=== PATIENT | female | born 1995 | race Caucasian/White ===

== ENCOUNTER 2022-11-26 09:48 | Emergency (ER) | payer SELFPAY | END 2022-11-26 11:31 | disposition home or self-care (01) | LOC: JD.ED 09:48 | DX: H66.002 Acute suppurative otitis media without spontaneous rupture of ear drum, left ear (principal); J40 Bronchitis, not specified as acute or chronic; J32.9 Chronic sinusitis, unspecified; E66.9 Obesity, unspecified; Z68.32 Body mass index [BMI] 32.0-32.9, adult | CPT/HCPCS: 99282 ==

== ENCOUNTER 2023-04-27 06:52 | Day surgery (SDC) | payer MEDICAID ==
[2023-04-27] MEDS ORDERED: Sodium Chloride 0.9% 10 ML Syringe FLUSH PRN (07:00)
[2023-04-27] MEDS ORDERED: Lactated Ringers 1,000 ML IV SCH (07:00)
[2023-04-27] MEDS ORDERED: Doxycycline Monohydrate 100 MG Cap PO SCH (07:00)
[2023-04-27] MEDS ORDERED: Methylergonovine 0.2 MG/1 ML Amp ONE (07:15)
[2023-04-27] MEDS ORDERED: fentaNYL 100 MCG/2 ML SDV ONE ×2 (07:45→08:41)
[2023-04-27] MEDS ORDERED: Propofol 200 MG/20 ML SDV ONE ×3 (07:46→08:41)
[2023-04-27] MEDS ORDERED: Midazolam 1 MG/ML 2 ML SDV ONE (07:46)
[2023-04-27] MEDS ORDERED: Lidocaine 1% 4 ML ONE (07:47)
[2023-04-27] MEDS ORDERED: Dexmedetomidine 200 MCG/2 ML SDV ONE (08:08)
[2023-04-27] MEDS ORDERED: Ondansetron 4 MG/2 ML SDV ONE (08:26)
[2023-04-27] MEDS ORDERED: Ketorolac 30 MG/ML SDV ONE (08:55)
[2023-04-27] MEDS ORDERED: Misoprostol 200 MCG Tab PO ONE (09:07)
[2023-04-27] MEDS ORDERED: Acetaminophen/HYDROcodone 325-5 MG Tab PO ONE (10:30)
== END 2023-04-27 10:02 | disposition home or self-care (01) ==
LOC: JD.SDS 06:52
PROVIDERS: ATTEND Obstetrics & Gynecology
DX: O02.1 Missed abortion (principal); O99.511 Diseases of the respiratory system complicating pregnancy, first trimester; J30.9 Allergic rhinitis, unspecified; O98.811 Other maternal infectious and parasitic diseases complicating pregnancy, first trimester; A74.9 Chlamydial infection, unspecified; O99.211 Obesity complicating pregnancy, first trimester; E66.9 Obesity, unspecified; O99.331 Smoking (tobacco) complicating pregnancy, first trimester; F17.200 Nicotine dependence, unspecified, uncomplicated; O99.341 Other mental disorders complicating pregnancy, first trimester; F41.9 Anxiety disorder, unspecified; F32.A Depression, unspecified; Z90.89 Acquired absence of other organs; Z79.899 Other long term (current) drug therapy; Z3A.09 9 weeks gestation of pregnancy
CPT/HCPCS: 59820; 88233; A9270; J1885; J2250; J2405; J2704; J3010; J7120; J2210; J3490

== ENCOUNTER 2023-07-11 15:12 | Emergency (ER) | payer SELFPAY | END 2023-07-11 17:53 | disposition home or self-care (01) | LOC: JD.ED 15:12 | DX: O99.891 Other specified diseases and conditions complicating pregnancy (principal); R10.2 Pelvic and perineal pain; O99.211 Obesity complicating pregnancy, first trimester; Z87.891 Personal history of nicotine dependence; Z3A.01 Less than 8 weeks gestation of pregnancy | CPT/HCPCS: 36415; 76817; 76817-26; 84702; 99283; 99284 ==

== ENCOUNTER 2023-08-04 19:09 | Emergency (ER) | payer SELFPAY ==
[2023-08-04 20:01] LABS: BASOPHILS ABSOLUTE AUTO 0.1 K/mm3 (0.0-0.2); BASOPHILS PERCENT AUTO 0.5 % (0.0-1.0); EOSINOPHILS ABSOLUTE AUTO 0.3 K/mm3 (0.0-0.4); EOSINOPHILS PERCENT AUTO 2.2 % (0.0-6.0); HEMATOCRIT 34.7 % (37.0-47.0); HEMOGLOBIN 12.1 gm/dl (12.0-16.0); IMMATURE GRAN ABSOLUTE AUTO 0.04 K/mm3 (0.00-0.05); IMMATURE GRAN PERCENT AUTO 0.3 % (0.0-0.4); LYMPHOCYTES ABSOLUTE AUTO 4.4 K/mm3 (1.0-4.8); LYMPHOCYTES PERCENT AUTO 33.3 % (24.0-44.0); MEAN CORPUSCULAR HEMOGLOBIN 30.2 pg (28.0-32.0); MEAN CORPUSCULAR HGB CONC 34.9 g/dl (32.0-36.0); MEAN CORPUSCULAR VOLUME 86.5 fl (83.0-99.0); MEAN PLATELET VOLUME 9.4 fl (9.4-12.3); MONOCYTES ABSOLUTE AUTO 0.9 K/mm3 (0.0-0.8); MONOCYTES PERCENT AUTO 7.2 % (0.0-8.0); NEUTROPHILS ABSOLUTE AUTO 7.4 K/mm3 (1.8-7.7); NEUTROPHILS PERCENT AUTO 56.5 % (41.0-71.0); PLATELET COUNT,PLT 241 K/mm3 (150-400); RED BLOOD CELL COUNT 4.01 M/mm3 (4.10-5.30); WHITE BLOOD CELL COUNT,WBC 13.06 K/mm3 (3.9-11.3)
== END 2023-08-04 21:40 | disposition home or self-care (01) ==
LOC: JD.ED 19:09
DX: O20.0 Threatened abortion (principal); O99.211 Obesity complicating pregnancy, first trimester; Z68.41 Body mass index [BMI] 40.0-44.9, adult; Z3A.08 8 weeks gestation of pregnancy
CPT/HCPCS: 36415; 84702; 85025; 86850; 86900; 86901; 99282; 99284

== ENCOUNTER 2024-11-14 21:46 | Emergency (ER) | payer SELFPAY ==
[2024-11-14] MEDS: Acetaminophen 325 MG Tab PO ONE (22:08)
== END 2024-11-14 23:10 | disposition home or self-care (01) ==
LOC: JD.ED 21:46
DX: J06.9 Acute upper respiratory infection, unspecified (principal); Z79.899 Other long term (current) drug therapy; Z86.16 Personal history of COVID-19
CPT/HCPCS: 87428-QW; 93005; 93010; 99283; 99285; A9270-GY